=== PATIENT | female | born 1980 | race American Indian/Alaskan Native ===

== ENCOUNTER 2024-06-28 07:06 | Emergency (ER) | payer SELFPAY ==
[~2024-06-28] VITALS: Ht 175.3 cm; Wt 61.4 kg
[2024-06-28 07:08] VITALS: TEMP 97.1
[2024-06-28 07:25] LABS: BASO # 0.1 K/mm3 (0.0-0.2); BASO % 0.4 % (0.0-2.0); EOS # 0.1 K/mm3 (0.0-0.7); EOS % 0.8 % (0.0-4.0); GRAN # 13.3 K/mm3 (1.4-6.5); GRAN % 81.4 % (42.2-75.2); HEMATOCRIT 37.4 % (37.0-47.0); HEMOGLOBIN 12.4 g/dl (12.5-16.0); LYMPH # 1.8 K/mm3 (1.2-3.4); MEAN CELL VOLUME 96 fl (80.0-100.0); MEAN CORPUSCULAR HEMOGLOBIN 32 pg (27-31); MEAN CORPUSCULAR HGB CONC 33 g/dl (33.0-37.0); MEAN PLATELET VOLUME 9.2 fl (7.4-10.4); MONO # 0.9 K/mm3 (0.1-0.6); MONO % 5.8 % (1.7-9.3); PLATELET COUNT 286 K/mm3 (130-400); RED BLOOD COUNT 3.91 M/mm3 (4.10-5.30); REDCELL DISTRIBUTION WIDTH-CV 11.9 % (11.5-14.5)
[2024-06-28] MEDS ORDERED: Ketorolac 30 MG/ML VIAL IV ONE (07:30)
[2024-06-28] MEDS ORDERED: Ondansetron 4 MG/2 ML VIAL IV ONE (07:30)
[2024-06-28] MEDS ORDERED: NS 1,000 ML IV ONE ×2 (07:30→08:45)
[2024-06-28] MEDS ORDERED: fentaNYL 50 MCG/ML 2 ML VIAL IV ONE (07:45)
[2024-06-28 07:53] LABS: PH 6.5 (5.0-8.5); URINE APPEARANCE CLEAR (CLEAR/HAZY); URINE BLOOD 3+ (NEGATIVE); URINE COLOR YELLOW (YELLOW); URINE GLUCOSE NEGATIVE (NEGATIVE); URINE KETONE 2+ (NEGATIVE); URINE NITRATE NEGATIVE (NEGATIVE); URINE PROTEIN(semi-quant) TRACE (NEGATIVE)
[2024-06-28 07:59] LABS: ALBUMIN 3.8 g/dL (3.5-5.0); BILIRUBIN,TOTAL 0.4 mg/dL (0.2-1.2); C-REACTIVE PROTEIN 0.02 mg/dL (0.00-0.50); CALCIUM 8.6 mg/dL (8.4-10.2); CREATININE, serum 0.81 mg/dL (0.57-1.11); POTASSIUM 3.5 mEq/L (3.5-4.5); TOTAL PROTEIN 6.2 g/dl (6.2-8.1)
[2024-06-28] MEDS ORDERED: Iohexol 300 - 100 ML VIAL IV ONE (08:07)
[2024-06-28] MEDS ORDERED: NS 100 ML IV ONE (08:08)
[2024-06-28 08:45] LABS: COLLECTION METHOD CLEAN CATCH
[2024-06-28] MEDS ORDERED: NORCO 325 MG-51 TAB PO (08:48)
[2024-06-28] MEDS ORDERED: FLOMAX 0.40.4 MG/CAP PO (08:48)
[2024-06-28] MEDS ORDERED: ZOFRAN ODT4 MG PO (08:48)
[2024-06-28] MEDS ORDERED: MACROBID 1100 MG/CAP PO (08:49)
[2024-06-28 09:48] VITALS: BP 98/61; PULSE 67
== END 2024-06-28 09:48 | disposition home or self-care (01) ==
LOC: COL.ER 07:06
PROVIDERS: Emergency Medicine
DX: N20.0 Calculus of kidney (principal)
CPT/HCPCS: J1885; J2405; J3010; J7030; Q9967